=== PATIENT | male | born 1970 | race Caucasian/White ===

== ENCOUNTER 2017-02-08 11:59 | Emergency (ER) | payer SELFPAY | END 2017-02-08 12:32 | disposition left against medical advice (07) | DX: Z53.21 Procedure and treatment not carried out due to patient leaving prior to being seen by health care provider (principal) ==

== ENCOUNTER 2018-12-05 20:07 | Outpatient (CLI) | payer OTHER ==
--- NOTE | 2018-12-05 21:35 | Ultrasound Report ---
Reason: TESTICULAR PAIN,UNSEPCIFIED Procedure Date: 12/05/2018 Accession Number: [id number] / [id number] Procedure: US - Testicle w/Doppler CPT Code: FULL RESULT: EXAM: SCROTAL ULTRASOUND EXAM DATE: 12/05/2018 08:45 PM. CLINICAL HISTORY: TESTICULAR PAIN,UNSEPCIFIED. COMPARISON: None. TECHNIQUE: Real-time scanning was performed with static images obtained. Color-flow images were utilized. FINDINGS: Right: Testis: 4.5 x 3.6 x 2.7 cm. Normal size and echotexture. No mass, calcification, or abnormal blood flow. Epididymis: 2.9 x 0.4 x 0.6 cm. Normal size and echotexture. No mass or abnormal blood flow. Hydrocele: Trace simple. Varicocele: None. Left: Testis: 3.9 x 3.3 x 2.2 cm. Normal size and echotexture. No mass, calcification, or abnormal blood flow. Epididymis: 2.9 x 0.6 x 0.6 cm. Normal size and echotexture. No mass or abnormal blood flow. Hydrocele: Trace simple. Varicocele: None. IMPRESSION: 1. No testicular mass or ultrasound evidence of infection or torsion. RADIA
== END 2018-12-05 20:08 | disposition home or self-care (01) ==
LOC: DI 20:07
PROVIDERS: ATTEND Internal Medicine
DX: N50.819 Testicular pain, unspecified (principal)
CPT/HCPCS: 76870; 93975

== ENCOUNTER 2022-05-02 08:00 | Outpatient (CLI) | payer BC, OTHER | END 2022-05-02 23:59 | disposition home or self-care (01) | LOC: LAB.S 08:00 | PROVIDERS: ATTEND Registered Nurse | DX: H02.9 Unspecified disorder of eyelid (principal) | CPT/HCPCS: 87252 ==

== ENCOUNTER 2022-11-06 09:32 | Day surgery (SDC) | payer BC ==
[2022-11-06] MEDS ORDERED: LACTATED RINGERS 1,000 ML IV ONE ×2 (10:01→12:09)
[2022-11-06] MEDS ORDERED: MIDAZOLAM 2 MG/2 ML VIAL ONE (11:09)
[2022-11-06] MEDS ORDERED: PROPOFOL 500 MG/50 ML 0 MG/0 ML VIAL ONE (11:10)
--- NOTE | 2022-11-06 11:10 | ANESTHESIA ---
Pre-Anesthesia VS, & Labs - Diagnosis screening - Procedure colonoscopy Vital Signs: Temp Pulse Resp BP Pulse Ox O2 Flow Rate 36.6 C 54 L 16 125/85 H 100 11/06/22 09:46 11/06/22 09:46 11/06/22 09:46 11/06/22 09:46 11/06/22 09:46 Height: 5 ft 9 in Weight (kg): 72 kg Body Mass Index: 23.4 BMI Classification: Normal - NPO Other (prep only this am) Home Medications and Allergies Home Medications: Ambulatory Orders No Known Home Medications 11/06/22 No Known Home Medications 11/06/22 Allergies/Adverse Reactions: Allergies Allergy/AdvReac Type Severity Reaction Status Date / Time No Known Drug Allergies Allergy Verified 10/15/19 16:19 Anes History & Medical History - Anesthetic History Anesthesia Complications: reports: No previous complications - Medical History Cardiovascular: reports: None Pulmonary: reports: None Gastrointestinal: reports: None Urinary: reports: None Musculoskeletal: reports: None Endocrine/Autoimmune: reports: None Skin: reports: None Smoking Status: Never smoker History of Cancer?: No Exam General: Alert, Oriented x3 Dental: WNL Mouth Opening: Greater than 4 Fingerbreadths Neck Mobility: Normal Mallampati classification: I Respiratory: Lungs clear Cardiovascular: Regular rate Plan Anesthesia Type: Total IV Consent for Procedure(s) Verified and Reviewed: Yes Code Status: Attempt Resuscitation ASA classification: 1-Healthy patient Is this case an emergency?: No
[2022-11-06] MEDS ORDERED: PROPOFOL 200 MG/20 ML VIAL IVP ONE ×2 (11:44→11:46)
[2022-11-06] MEDS ORDERED: PROPOFOL 500 MG/50 ML 500 MG/50 ML VIAL ONE (11:46)
[2022-11-06] MEDS ORDERED: SIMETHICONE 40 MG/0.6 ML 30 ML BOTTLE PO ONE (11:50)
[2022-11-06] MEDS ORDERED: ePHEDrine 50 MG/ML VIAL IVP ONE (11:57)
[2022-11-06 12:42] VITALS: BP 105/61
--- NOTE | 2022-11-06 13:57 | ANESTHESIA POST OP EVALUATION ---
Anesthesia Post Eval - Post Anesthesia Eval Vitals: Last Vital Signs Temp 36.8 C 11/06/22 12:42 Pulse 57 L 11/06/22 12:42 Resp 16 11/06/22 12:42 BP 105/61 11/06/22 12:42 Pulse Ox 100 11/06/22 12:42 O2 Flow Rate CV Function Including HR & BP: Stable Pain Control: Satisfactory Nausea & Vomiting: Negative Mental Status: Baseline Respiratory Status: Airway Patent Hydration Status: Satisfactory Anesthesia Complications: None
== END 2022-11-06 09:33 | disposition home or self-care (01) ==
LOC: SDS 09:32
PROVIDERS: ATTEND Surgery
DX: Z12.11 Encounter for screening for malignant neoplasm of colon (principal)
CPT/HCPCS: 45378; A9270; J7120

== ENCOUNTER 2024-05-14 16:56 | Outpatient (CLI) | payer BC, OTHER ==
--- NOTE | 2024-05-15 13:43 | Ultrasound Report ---
PROCEDURE: Pelvic Limited INDICATIONS: LEFT INGUINAL HERNIA TECHNIQUE: Real-time transabdominal scanning was performed of the left inguinal region, with image documentation . COMPARISON: None. FINDINGS: Left inguinal hernia containing bowel. The hernia neck measures 1 cm. The hernia is reducible. The he rnia sac measures approximately 1.7 x 1.2 cm. IMPRESSION: Small left inguinal hernia containing bowel. Reviewed by: Koffi Medina MD on 05/15/2024 1:41 PM PDT Approved by: Koffi Medina MD on 05/15/2024 1:41 PM PDT Station ID: [id number]
== END 2024-05-14 16:57 | disposition home or self-care (01) ==
LOC: DI 16:56
PROVIDERS: ATTEND Registered Nurse
DX: K40.90 Unilateral inguinal hernia, without obstruction or gangrene, not specified as recurrent (principal)

== ENCOUNTER 2024-07-09 08:27 | Day surgery (SDC) | payer OTHER ==
[~2024-07-09 08:27] MED LIST: BUPIVACAINE 0.25% PF 30 ML VIAL ONE; ceFAZolin 2 GM VIAL ONE; lidocaine 1% 20 ML MDV ONE
[2024-07-09] MEDS: LACTATED RINGERS 1,000 ML IV ONE ×3 (08:33→11:29)
[2024-07-09] MEDS ORDERED: ATROPINE ABBOJECT 1 MG/10 ML SYRINGE IVP PRN (09:16)
[2024-07-09] MEDS ORDERED: MORPHINE 2 MG/ML CARPUJECT IVP PRN (09:16)
[2024-07-09] MEDS ORDERED: NALOXONE 0.4 MG/ML VIAL IVP PRN (09:16)
[2024-07-09] MEDS ORDERED: METOCLOPRAMIDE 10 MG/2 ML VIAL IVP PRN (09:16)
[2024-07-09] MEDS ORDERED: ePHEDrine 50 MG/ML VIAL IVP PRN (09:16)
[2024-07-09] MEDS ORDERED: fentaNYL 100 MCG/2 ML VIAL IVP PRN (09:16)
[2024-07-09] MEDS ORDERED: HYDROmorphone 0.5 MG/0.5 ML SYRINGE IVP PRN ×2 (09:16→11:04)
[2024-07-09] MEDS ORDERED: ONDANSETRON 4 MG/2 ML VIAL IVP PRN (09:16)
--- NOTE | 2024-07-09 09:16 | ANESTHESIA ---
Pre-Anesthesia VS, & Labs - Diagnosis L inguinal hernia - Procedure L inguinal hernia repair with mesh Vital Signs: Temp Pulse Resp BP Pulse Ox O2 Flow Rate 36.3 C L 61 13 145/95 H 100 07/09/24 08:38 07/09/24 08:38 07/09/24 08:38 07/09/24 08:38 07/09/24 08:38 Height: 5 ft 9 in Weight (kg): 72.4 kg Body Mass Index: 23.6 BMI Classification: Normal - NPO >8 hours Home Medications and Allergies No Known Home Medications 11/06/22 Allergies/Adverse Reactions: Allergies Allergy/AdvReac Type Severity Reaction Status Date / Time No Known Drug Allergies Allergy Verified 07/09/24 08:45 Anes History & Medical History - Anesthetic History Anesthesia Complications: reports: No previous complications Family history of Anesthesia Complications: Denies Family history of Malignant Hyperthermia: Denies - Medical History Cardiovascular: reports: None Pulmonary: reports: None Gastrointestinal: reports: None Urinary: reports: None Neuro: reports: None Musculoskeletal: reports: None Endocrine/Autoimmune: reports: None Skin: reports: None Smoking Status: Never smoker Psychosocial: reports: Alcohol - Surgical History Orthopedic: reports: Other (ORIF RUE) Exam General: Alert Dental: WNL Mouth Openin Fingerbreadth Neck Mobility: Normal Mallampati classification: II Thyromental Distance: 4-6 cm Respiratory: Lungs clear Cardiovascular: Regular rate Plan Anesthesia Type: General Consent for Procedure(s) Verified and Reviewed: Yes Code Status: Attempt Resuscitation ASA classification: 2-Mild systemic disease Is this case an emergency?: No
[2024-07-09] MEDS ORDERED: LIDOCAINE-PF 2% 10 ML AMP SUBQ ONE (09:23)
[2024-07-09] MEDS ORDERED: MIDAZOLAM 2 MG/2 ML VIAL ONE (09:23)
[2024-07-09] MEDS ORDERED: PROPOFOL 500 MG/50 ML 500 MG/50 ML VIAL ONE (09:23)
[2024-07-09] MEDS ORDERED: PROPOFOL 200 MG/20 ML VIAL IVP ONE (09:23)
[2024-07-09] MEDS ORDERED: DEXMEDETOMIDINE 200 MCG/2 ML VIAL ONE (09:28)
[2024-07-09] MEDS ORDERED: GLYCOPYRROLATE 1 MG/5 ML VIAL ONE (09:46)
[2024-07-09] MEDS ORDERED: LACTATED RINGERS 1,000 ML IV SCH (10:00)
[2024-07-09] MEDS: BUPIVACAINE 0.25% PF 30 ML VIAL SUBQ ONE (10:14)
[2024-07-09] MEDS: LIDOCAINE-MPF 1% 30 ML VIAL SUBQ ONE (10:14)
--- NOTE | 2024-07-09 11:13 | OPERATIVE REPORT ---
Operative Report - General Procedure Date: 07/09/24 Planned Procedure: open left inguinal hernia repair with mesh Pre-Op Diagnosis: left inguinal hernia Procedure Performed: open left inguinal hernia repair with mesh Post Op Diagnosis: left indirect inguinal hernia - Procedure Note Primary Surgeon: bharathi fox Anesthesia Technique: Local, MAC Pathology: none sent Estimated Blood Loss (mL): 1 Drain/Tube Type: Other (none) Indications: painful hernia bulge Findings: as above Complications: none - Other Other Information/Narrative: Patient was properly identified brought to the operating room and placed in supine position. Sequential compression devices were placed. Monitored anesthesia care and sedation was given. He was prepped and draped in a sterile fashion and given preoperative antibiotics. Local anesthetic was given throughout the procedure. A 5 cm incision was made in the direction of Grupo's lines just cephalad of the pubic tubercle. Dissection proceeded with cutting current cautery. The superficial epigastric vein was not present within the incision area. Dissection proceeded down to the aponeurosis. The aponeurosis was opened in the direction of its fibers and extended to the external ring. Cord structures were mobilized and brought up. The nerves were carefully protected and preserved. Cord structures were mobilized and brought up. An indirect inguinal hernia was present. Preperitoneal fat was removed. The base was tied with 2 O vicryl. The indirect hernia sac was suture ligated with a 2 O silk and removed. Polypropylene mesh was cut to size and with tails. The mesh was secured with multiple interrupted 0 Ethibond sutures. Sutures were placed along the pubic tubercle, Nico's ligament area and along the shelving border of Poupart's ligament. Sutures were placed medially along the abdominal wall musculature and internal oblique. The medial tail of the mesh was secured to the shelving border of Poupart's ligament with 3 interrupted 0 ethibond sutures recreating the internal ring of appropriate size. Aponeurosis was closed with a running 2-0 Vicryl suture. Scarpas was closed with interrupted 3- 0 Vicryl suture. Buried interrupted subdermal 3-0 Vicryl sutures were then placed. And was closed with a running 4-0 Monocryl subcuticular suture. Dressing was applied. Patient was awakened and brought to recovery in good condition.
[2024-07-09 11:44] VITALS: O2SAT 100
[2024-07-09 12:28] VITALS: BP 134/95
--- NOTE | 2024-07-09 14:14 | ANESTHESIA POST OP EVALUATION ---
Anesthesia Post Eval - Post Anesthesia Eval Vitals: Last Vital Signs Temp 36.2 C L 07/09/24 12:19 Pulse 60 07/09/24 12:19 Resp 14 07/09/24 12:19 BP 134/95 H 07/09/24 12:19 Pulse Ox 100 07/09/24 12:19 O2 Flow Rate CV Function Including HR & BP: Stable Pain Control: Satisfactory Nausea & Vomiting: Negative Mental Status: Baseline Respiratory Status: Airway Patent Hydration Status: Satisfactory Anesthesia Complications: None
== END 2024-07-09 08:28 | disposition home or self-care (01) ==
LOC: SDS 08:27
PROVIDERS: ATTEND Surgery
DX: K40.90 Unilateral inguinal hernia, without obstruction or gangrene, not specified as recurrent (principal)
CPT/HCPCS: 49505; C1781; J7120